=== PATIENT | female | born 1985 | race Caucasian/White ===

== ENCOUNTER 2016-08-11 19:51 | Emergency (ER) ==
[2016-08-11 20:16] LABS: URINE MICRO REVIEW NEEDED? NO; URINE SOURCE CLEAN CATCH
[2016-08-11 20:18] LABS: BILIRUBIN URINE NEGATIVE (NEGATIVE); BLOOD URINE LARGE (NEGATIVE); COLOR STRAW; GLUCOSE URINE NEGATIVE (NEGATIVE); LEUKOCYTES URINE SMALL (NEGATIVE); NITRITE URINE NEGATIVE (NEGATIVE); PROTEIN URINE NEGATIVE (NEGATIVE); SP GRAVITY URINE 1.011; TURBIDITY URINE HAZY (CLEAR); UROBILINOGEN URINE NORMAL (NORMAL)
[2016-08-11 20:19] LABS: UR EPITHELIAL CELLS <10 /HPF (<10); URINE BACTERIA NEGATIVE /HPF; URINE CULTURE NEEDED? YES; URINE RBC TNTC /HPF (<10); URINE WBC <10 /HPF (<10)
--- NOTE | 2016-08-11 20:29 | PROVIDER DOCUMENTATION ---
HPI-Female /OB/Breast - General Chief Complaint: UTI Symptoms Stated Complaint: CANNOT URINATE, BLEEDING Time Seen by Provider: 08/11/16 20:29 Source: reports: patient Allergies/Adverse Reactions: Patient Allergies Allergy/AdvReac Type Severity Reaction Status Date / Time ketorolac tromethamine * Allergy Intermediate HIVES Verified 08/11/16 20:03 [From Toradol] tramadol Allergy Intermediate HIVES Verified 08/11/16 20:03 - History of Present Illness-Female /OB Nature of Presenting Problem: 31 year old WF presents with c/o urinary frequency and hematuria for two days. pt reports her urine is bright red with associated symptoms of suprapubic pain, sharp, radiating to bilateral flanks. pt reports history of renal stone and this feels similar. denies fever, chills, nausea, vomiting, diarrhea. Review of Systems - Adult - REVIEW OF SYSTEMS - ADULT Constitutional: reports: no symptoms reported. denies: chills, fever Eyes: reports: no symptoms reported. denies: discharge, blurred vision, double vision Ears, Nose, Mouth & Throat: reports: no symptoms reported. denies: ear discharge, ear pain, nose pain, loose teeth, throat pain, throat swelling Cardiovascular: reports: no symptoms reported. denies: chest pain, palpitations Respiratory: reports: no symptoms reported. denies: chronic cough, cough, shortness of breath, wheezing Gastrointestinal: reports: see HPI, abdominal pain. denies: hematemesis, constipation, diarrhea, difficulty swallowing, frequent heartburn, nausea, poor appetite, rectal bleeding, vomiting Genitourinary: reports: see HPI, frequency, flank pain, hematuria. denies: dysuria, discharge, frequent UTI's, hesitency, incontinence, urinary retention, urgency Musculoskeletal: reports: no symptoms reported. denies: bone pain, joint pain, joint swelling Integumentary: reports: no symptoms reported. denies: hives, itching, rash Neurological: reports: no symptoms reported. denies: ataxia, numbness, paresthesia Psychiatric: reports: no symptoms reported Endocrine: reports: no symptoms reported Hematologic/Lymphatic: reports: no symptoms reported Allergic/Immunologic: reports: no symptoms reported All Other Systems: Reviewed and Negative Past History - Adult - PAST MEDICAL HISTORY-ADULT Review of Records: reports: Old Records Reviewed, Nursing Assessment Review, Medications Reviewed, Social history reviewed & non-contributory. Major Childhood Illnesses: reports: denies history Cardiovascular: reports: denies history Respiratory: reports: denies history Gastrointestinal: reports: denies history Obstetrical/Gynecological: reports: other (cervical cancer) Genitourinary: reports: kidney stones Musculoskeletal: reports: denies history Neurological: reports: denies history Endocrine/Immune: reports: denies history Other Conditions: reports: denies history - PRIOR SURGERIES/PROCEDURES Surgical/Procedure History: reports: appendectomy, cholecystectomy, hysterectomy - IMMUNIZATION STATUS Childhood Immunizations: See Nurse Assessment Flu Vaccine: See Nurse Assessment - FAMILY HISTORY Family History: reviewed, not pertinent - SOCIAL HISTORY Smoking: cigarettes Provider spent 3-5 mins advising pt. on dangers of tobacco.: Discussed manners to quit use, and f/u contacts for add'l counseling. Substance Use: none/never Alcohol Use Frequency: never Physical Exam-General - PHYSICAL EXAM-ADULT Initial Vital Signs Reviewed: Yes - CONSTITUTIONAL General Appearance: appears well, alert, no apparent distress - EYES Eyes: PERRL/EOMI, pink conjunctivae - HEAD, EARS, NOSE, MOUTH & THROAT HENMT: normocephalic/atraumatic, moist mucous membranes, normal ENT inspection - NECK Neck: non-tender, full range of motion, supple, normal inspection - RESPIRATORY Respiratory: chest non-tender, lungs clear, normal breath sounds - CARDIOVASCULAR Cardiovascular: normal peripheral pulses, regular rate, rhythm, no edema - GASTROINTESTINAL (ABDOMEN) Abdominal Exam: normal bowel sounds, soft, tenderness (suprapubic,). negative: non tender, distended, guarding, rigid, rebound, hepatomegaly, spleenomegaly, McBurney's point tenderness, Chao's sign, prominent aortic pulsations, psoas, Rovsing's sign - GENITOURINARY Female Genitalia/Pelvic Exam: deferred Rectal Exam: deferred Hemoccult Exam: deferred - LYMPHATIC Lymphatic: no adenopathy - MUSCULOSKELETAL Back Exam: normal inspection, no CVA tenderness, no vertebral tenderness. negative: CVA tenderness, decreased range of motion, vertebral tenderness Extremity: normal range of motion, non-tender, normal gait Peripheral Pulses: radial (R): 3+, radial (L): 3+, dorsalis-pedis (R): 3+, dorsalis-pedis (L): 3+ - SKIN Integumentary: normal color, normal turgor, warm/dry - NEUROLOGIC Neurologic: grossly normal, no motor/sensory deficits - PSYCHIATRIC Psych/Mental Status: normal mood/affect, normal thought content, normal thought process, oriented x 3 Progress - PLAN OF CARE/RESULTS Progress/Plan/Lab Results: Laboratory Tests 08/11/16 20:13 Urine Source CLEAN CATCH Urine Color STRAW Urine Turbidity HAZY Urine pH 6.0 Ur Specific [place] 1.011 Urine Protein NEGATIVE Ur Glucose (Stick) NEGATIVE Ur Ketones (Stick) NEGATIVE Urine Blood LARGE A Urine Nitrite NEGATIVE Urine Bilirubin NEGATIVE Urobilinogen Dipstick NORMAL Urine Leukocytes SMALL A Urine WBC (Auto) <10 Urine RBC (Auto) TNTC A U Epithel Cells (Auto) <10 Urine Bacteria (Auto) NEGATIVE Orders Category Date Time Status RENAL STONE SEARCH [CT] Stat Exams 08/11/16 21:09 Taken URINALYSIS W/POSS RFLX CULT [URINALYSIS] Stat Lab 08/11/16 20:13 Completed URINE CULTURE [RM] Routine Lab 08/11/16 20:32 Received Hydrocodone/APAP 7.5 mg/325 mg [[place]-7.5] Med 08/11/16 21:10 Discontinued 1 each PO NOW ONE Ondansetron [Zofran] Med 08/11/16 21:09 Discontinued 4 mg PO NOW ONE Vital Signs - 24 hr 08/11/16 08/11/16 19:59 22:20 Temperature 98.3 F 98.3 F Pulse Rate 85 77 Respiratory 16 16 Rate Blood Pressure 130/74 103/88 O2 Sat by Pulse 100 100 Oximetry - CT/MRI 1 CT Study: Renal Stone Impression: Abnormal (2mm stone, diverticulosis coli, no acute process. prelim read per Dr. Sanchez) Departure - Departure Time of Disposition Order: 22:03 DIAGNOSIS: Kidney stone, Hematuria Disposition: HOME 01 Certified Medical Emergency: Emergent Condition: Stable Additional Instructions: Follow up with Dr. Anglin. ED Follow Up Instructions: You have been treated by a care provider in the Emergency Department. These instructions are being provided to you so you can have an understanding of how to care for yourself upon discharge. Upon discharge from the Emergency Department, you are responsible for making arrangements for follow-up care by a physician of your choice. Take all prescribed medications as directed. Return to the Emergency Department immediately for any new or worsening symptoms. You may call the Physician Referral phone number at [phone] to obtain a list of Physicians who are taking new patients. Prescriptions: Hydrocodone/APAP 5 mg/325 mg [[place]-5] 1 each PO Q6H PRN PRN #10 tablet PRN Reason: left flank pain Promethazine [Phenergan] 25 mg PO Q6H PRN PRN #20 tablet PRN Reason: Nausea Promethazine [Phenergan] 25 mg [place] Q6H PRN PRN #14 supp PRN Reason: Nausea Ondansetron [Zofran] 4 mg PO Q6H PRN PRN #20 tablet PRN Reason: Nausea Referrals: Arvin López MD [Primary Care Provider] - Kt Anglin MD [STAFF PHYSICIAN] - Instructions: Kidney Stones, [id number], Hematuria, Adult Attestation - Physician/ Mid-level Attestation Patient care was provided by Mid-level provider (CLINICAL DOCUMENTATION SPEC/PA):: Yes Mid-level provider:: Fito Baca Mid-level documentation review:: The Mid-level provider documentation, treatment plan and medical decision making was reviewed by the physician who agrees with all treatment and medical decision making by the P.
[2016-08-11] MEDS ORDERED: ZOFRAN PO ONE (21:09)
[2016-08-11] MEDS ORDERED: NORCO-7.5 PO ONE (21:10)
[2016-08-11 22:21] VITALS: BP 103/88
--- NOTE | 2016-08-12 09:13 | Diag Imaging Result Document ---
PROCEDURE NAME: RENAL STONE SEARCH - 08/11/2016 CT RENAL STONE SEARCH WITHOUT CONTRAST: A dose-reduction protocol was used. COMPARISON: 04/13/2016. FINDINGS: There is no evidence of hydronephrosis or perinephric edema. There is a 3 mm stone at the lower left kidney. There is no ureteral stone identified. There is no evidence of bowel obstruction. There is uncomplicated colonic diverticulosis which is most prominent at the sigmoid and distal descending colon. There is no free air. There is minimal free fluid at the right posterior pelvis. IMPRESSION: 1. 3 mm nonobstructing stone in left kidney. No evidence of ureteral stone or hydronephrosis. 2. Uncomplicated colonic diverticulosis. The on-call radiologist provided preliminary results at 9:33 p.m. on 08/11/2016.
== END 2016-08-11 22:20 | disposition home or self-care (01) ==
LOC: ED 19:51
DX: N20.0 Calculus of kidney (principal); K57.90 Diverticulosis of intestine, part unspecified, without perforation or abscess without bleeding; R31.9 Hematuria, unspecified; R35.0 Frequency of micturition; R10.9 Unspecified abdominal pain; R10.819 Abdominal tenderness, unspecified site; F17.210 Nicotine dependence, cigarettes, uncomplicated; Z71.6 Tobacco abuse counseling; Z85.41 Personal history of malignant neoplasm of cervix uteri; Z87.442 Personal history of urinary calculi
CPT/HCPCS: 74176; 81001; 87088